=== PATIENT | male | born 1980 ===

== ENCOUNTER 2024-05-19 13:15 | Day surgery (SDC) | payer OTHER ==
[2024-05-13 10:29] LABS: HEMATOCRIT 47.3 % (39.0-48.0); HEMOGLOBIN 15.7 g/dL (13-16.00); MEAN CELL VOLUME 90.5 fL (80.0-100.00); MEAN CORPUSCULAR HEMOGLOBIN 30.1 pg (27.00-32.0); MEAN CORPUSCULAR HGB CONC 33.2 g/dl (32.0-36.0); PLATELET COUNT 183 K/uL (150-450); RED BLOOD COUNT 5.23 M/uL (4.00-6.00); RED CELL DISTRIBUTION WIDTH 13.3 % (11.5-14.5)
[2024-05-13 10:31] LABS: PH,URINE 5.5 (5.0-8.0); URINE APPEARANCE Clear; URINE BILIRRUBIN Negative (NEGATIVE); URINE BLOOD Small; URINE COLOR Yellow; URINE GLUCOSE Negative (NEGATIVE); URINE KETONE Trace (NEGATIVE); URINE LEUKOCYTE Negative; URINE NITRATE Negative; URINE PROTEIN Negative (NEGATIVE); URINE UROBILINOGEN 0.2 E.U./dl
[2024-05-13 10:33] LABS: URINE EPITHELIAL CELLS 1.5 uL (0.0-38.8)
[2024-05-13 10:40] LABS: URINE BACTERIA 1.2 uL (0.0-1933)
[2024-05-13 11:17] LABS: INR 1.03; PARTIAL THROMBOPLASTIN TIME 34.3 SECONDS (22.0-34.0); PROTHROMBIN TIME 11.2 SECONDS (9.0-11.5)
[2024-05-13 11:53] LABS: CALCIUM 9.6 mg/dL (8.5-10.1); CREATININE SERUM 0.99 mg/dL (0.70-1.30); GFR 82.12
[2024-05-19] MEDS ORDERED: CEFAZOLIN SODIUM 1,000 MG VIAL ONE (14:58)
[2024-05-19] MEDS ORDERED: MIRALAX17 GM PO (18:43)
[2024-05-19] MEDS ORDERED: TRAMADOL HCL50 MG PO (18:43)
[2024-05-19] MEDS ORDERED: NEURONTIN300 MG PO (18:43)
[2024-05-19] MEDS ORDERED: TYLENOL ARTHRI650 MG PO (18:43)
[2024-05-19] MEDS ORDERED: KETO10TA2 PO (18:43)
[2024-05-19] MEDS ORDERED: BUPIVACAINE HCL/MPF 0.5% 30ML VIAL ONE (18:48)
[2024-05-19] MEDS ORDERED: SUGAMMADEX SODIUM 200 MG/2 ML VIAL IV ONE (19:54)
[2024-05-19] MEDS ORDERED: MORPHINE SULFATE 4 MG/ML VIAL IV ONE ×2 (21:05→21:35)
== END 2024-05-19 23:10 | disposition home or self-care (01) ==
LOC: CIR.AMB 13:15
PROVIDERS: ATTEND Surgery
DX: K42.0 Umbilical hernia with obstruction, without gangrene (principal); E78.49 Other hyperlipidemia
CPT/HCPCS: 49616; C1781

== ENCOUNTER 2024-05-21 11:59 | Emergency (ER) | payer OTHER ==
[~2024-05-21] VITALS: Ht 170.2 cm; Wt 86.2 kg
[~2024-05-21 11:59] MED LIST: KETO10TA2 PO; MIRALAX17 GM PO; NEURONTIN300 MG PO; TRAMADOL HCL50 MG PO; TYLENOL ARTHRI650 MG PO
[2024-05-21] MEDS ORDERED: ONDANSETRON HCL 2 MG/ML VIAL ONE (12:30)
[2024-05-21] MEDS ORDERED: 0.9 % SODIUM CHLORIDE 1,000 ML IV ONE (12:30)
[2024-05-21] MEDS ORDERED: ONDANSETRON HCL 2 MG/ML VIAL IV ONE (12:30)
[2024-05-21] MEDS ORDERED: FAMOtidine 10 MG/ML (4ML VIAL) IV ONE ×2 (12:30)
[2024-05-21] MEDS ORDERED: FAMOTIDINE/PF 20 MG/2 ML VIAL ONE (12:30)
[2024-05-21 12:58] LABS: HEMATOCRIT 49.5 % (39.0-48.0); HEMOGLOBIN 16.4 g/dL (13-16.00); MEAN CELL VOLUME 90.7 fL (80.0-100.00); MEAN CORPUSCULAR HGB CONC 33.1 g/dl (32.0-36.0); PLATELET COUNT 236 K/uL (150-450); RED BLOOD COUNT 5.46 M/uL (4.00-6.00); RED CELL DISTRIBUTION WIDTH 13.1 % (11.5-14.5)
[2024-05-21 13:27] LABS: ALBUMIN 3.8 gm/dL (3.4-5.0); BILIRUBIN TOTAL 0.64 mg/dL (0.3-1.2); CALCIUM 9.2 mg/dL (8.5-10.1); CREATININE SERUM 1.33 mg/dL (0.70-1.30); GFR 58.41; GLOBULINA 4.3 G/DL (2.4-3.5); POTASSIUM 4.19 mEq/L (3.5-5.1); TOTAL PROTEIN 8.1 gm/dL (6.4-8.2)
[2024-05-21] MEDS ORDERED: KETO10TA2 PO (13:43)
[2024-05-21] MEDS ORDERED: ZOFRAN8 MG PO (13:43)
[2024-05-21] MEDS ORDERED: PEPCID AC20 MG PO (13:43)
== END 2024-05-21 13:46 | disposition home or self-care (01) ==
LOC: ER 11:59
PROVIDERS: General Practice
DX: R11.2 Nausea with vomiting, unspecified (principal)